=== PATIENT | female | born 1980 | race Caucasian/White ===

== ENCOUNTER 2016-11-15 19:59 | Emergency (ER) | payer OTHER ==
[2016-11-15 23:14] LABS: BASO # 0.1 K/uL (0.0-0.2); BASO % 0.7 % (0.0-2.0); EOS # 0.2 K/uL (0.0-0.7); EOS % 2.2 % (0.0-4.0); HEMATOCRIT 22.1 % (34.0-47.0); LYMPH # 2.1 K/uL (1.0-4.3); LYMPH % 26.6 % (20.0-40.0); MEAN CELL VOLUME 77.3 fL (81.0-99.0); MEAN CORPUSCULAR HEMOGLOBIN 24.1 pg (27.0-31.0); MEAN CORPUSCULAR HGB CONC 31.2 g/dL (33.0-37.0); MEAN PLATELET VOLUME 8.9 fL (7.2-11.7); MONO # 0.3 K/uL (0.0-0.8); RED CELL DISTRIBUTION WIDTH 16.4 % (11.5-14.5); WHITE BLOOD COUNT 7.9 K/uL (4.8-10.8)
[2016-11-15 23:17] LABS: RBC URINE 1 /hpf (0-3); URINE BACTERIA RARE (<OCC); URINE BILIRUBIN NEGATIVE (NEGATIVE); URINE BLOOD NEGATIVE (NEGATIVE); URINE COLOR Straw (YELLOW); URINE GLUCOSE (UA) 1+ mg/dL (Normal); URINE KETONE NEGATIVE (NEGATIVE); URINE LEUKOCYTE ESTERASE NEG Leu/uL (Negative); URINE PROTEIN 2+ mg/dL (NEGATIVE); URINE UROBILINOGEN NORMAL mg/dL (0.2-1.0); WBC URINE 1 /hpf (0-5)
[2016-11-15 23:25] LABS: POTASSIUM 5.1 mmol/L (3.6-5.2)
[2016-11-15 23:28] LABS: ALB/GLOB RATIO 1.3 (1.0-2.1); BILIRUBIN,TOTAL 0.6 mg/dL (0.2-1.3); CALCIUM 9.3 mg/dl (8.6-10.4); TOTAL PROTEIN 8.1 g/dL (6.3-8.3)
[2016-11-15 23:59] LABS: THYROID STIMULATING HORMONE 6.81 mIU/L (0.46-4.68)
--- NOTE | 2016-11-16 00:42 | C.PDOC ---
History Of Present Illness 36 y/o male referred by Dr. Missy Barron, [employer], for abnormal outpatient labs related to infertility. Patient notes to have elevated TSH and elevated creatinine. Denies somatic complaints. Time Seen by Provider: 11/15/16 22:40 Chief Complaint (Nursing): Abnormal Labs History Per: Patient History/Exam Limitations: no limitations Onset/Duration Of Symptoms: Days Current Symptoms Are (Timing): Still Present Severity: Mild Recent travel outside of the [place]: No Additional History Per: Patient Past Medical History Reviewed: Historical Data, Nursing Documentation, Vital Signs Vital Signs: Last Vital Signs Temp 98.3 F 11/16/16 00:56 Pulse 85 11/16/16 00:56 Resp 18 11/16/16 00:56 BP 130/87 11/16/16 00:56 Pulse Ox 97 11/16/16 00:56 Family History: States: Unknown Family Hx - Social History Hx Alcohol Use: Yes Hx Substance Use: No - Immunization History Hx Tetanus Toxoid Vaccination: No Hx Influenza Vaccination: No Hx Pneumococcal Vaccination: No Review Of Systems Except As Marked, All Systems Reviewed And Found Negative. Constitutional: Positive for: Other (abnormal labs). Negative for: Fever Cardiovascular: Negative for: Chest Pain Respiratory: Negative for: Shortness of Breath Gastrointestinal: Negative for: Abdominal Pain Physical Exam - Physical Exam Appears: Non-toxic, No Acute Distress Skin: Warm, Dry, Other (Plethoric face) Head: Atraumatic, Normacephalic Eye(s): bilateral: Normal Inspection Oral Mucosa: Moist Neck: Supple Cardiovascular: Rhythm Regular Respiratory: Normal Breath Sounds, No Rales, No Rhonchi, No Wheezing Gastrointestinal/Abdominal: Soft, No Tenderness Back: Normal Inspection, No CVA Tenderness Neurological/Psych: Oriented x3, Normal Speech, Normal Cognition ED Course And Treatment - Laboratory Results Result Diagrams: 11/15/16 23:11 11/15/16 23:11 Lab Interpretation: Abnormal (worstening bun/creat, rising TSH, + Prolactin level 54, normal K+ concerning for prolactinoma) ECG: Interpreted By Me ECG Rhythm: Sinus Rhythm ECG Interpretation: Normal Rate From EC O2 Sat by Pulse Oximetry: 100 (RA) Pulse Ox Interpretation: Normal Reevaluation Time: 00:40 Reassessment Condition: Unchanged Medical Decision Making Medical Decision Making: Plans: * EKG * IV fluids * UA * Blood work up consider prolactinoma, MRI pituitary suggested pt and extensively explained risks/benefits and they decide to leave hospital AMA and f/u as opt w Medicine Rn Hemodialysis Charge or local Physician Lexii Barron with whom they are familiar. Will f/u with Dr. Jerome Syed [employer] as well Copies of labs given for easy referral AMA form completed. Expect pt to return to hospital for w/u soon considering, as explained, worstening renal function may lead to hyperkalemia and potentially fatal cardiac arrhythmias. Disposition Doctor Will See Patient In The: Office Counseled Patient/Family Regarding: Studies Performed, Diagnosis - Disposition Referrals: Delonte Blanca Jr., MD [Medical Doctor] - Juan Barron MD [Staff Provider] - Francy Barron MD [Staff Provider] - Disposition: HOME/ ROUTINE Disposition Time: 00:42 Condition: GOOD Additional Instructions: Please follow-up with Dr. Jerome Barron as soon as possible Follow up with Medicine Rn Hemodialysis Charge- Dr. Blanca Follow up with Local [place] PMD: Dr. Lexii Barron- also renal specialist Further testing and MRI of Brain/pituitary is indicated immediately Return to ED by ambulance should pt's condition deteriorate clinically Instructions: Acute Kidney Injury (DC), Prolactinomas (GEN) Forms: [employer] (Arabic) - Clinical Impression Clinical Impression: Laboratory test result abnormal, Acute renal insufficiency, Prolactin increased - Scribe Statement The provider has reviewed the documentation as recorded by the Scribe Lincoln sneed All medical record entries made by the Scribe were at my direction and personally dictated by me. I have reviewed the chart and agree that the record accurately reflects my personal performance of the history, physical exam, medical decision making, and the department course for this patient. I have also personally directed, reviewed, and agree with the discharge instructions and disposition.
[2016-11-16 00:56] VITALS: BP 130/87; PULSE 85; RESP 18; TEMP 98.3
[2016-11-16 02:37] VITALS: O2SAT 100
--- NOTE | 2016-11-17 17:59 | CARD ---
APPROVED REPORT EKG Measurement Heart [id number] HI [id number] [id number] <Conclusion> Normal sinus rhythm Cannot rule out Inferior infarct, age undetermined Abnormal ECG
== END 2016-11-16 00:58 | disposition home or self-care (01) ==
LOC: C.ER 19:59
DX: N28.9 Disorder of kidney and ureter, unspecified (principal)

== ENCOUNTER 2016-11-24 12:19 | Inpatient (IN) | payer OTHER ==
[2016-11-24 13:28] LABS: RBC URINE 1 /hpf (0-3); URINE BACTERIA RARE (<OCC); URINE BILIRUBIN NEGATIVE (NEGATIVE); URINE BLOOD NEGATIVE (NEGATIVE); URINE COLOR Straw (YELLOW); URINE GLUCOSE (UA) 2+ mg/dL (Normal); URINE KETONE NEGATIVE (NEGATIVE); URINE LEUKOCYTE ESTERASE NEG Leu/uL (Negative); URINE PROTEIN 2+ mg/dL (NEGATIVE); URINE UROBILINOGEN NORMAL mg/dL (0.2-1.0); WBC URINE 3 /hpf (0-5)
--- NOTE | 2016-11-24 14:27 | C.PDOC ---
History Of Present Illness 36 y/o female presents to the ED for evaluation of acute renal failure and anemia. Patient denies chest pain, shortness of breath, and dizziness. denies active bleeding from any site. Time Seen by Provider: 11/24/16 13:27 Chief Complaint (Nursing): Abnormal Labs History Per: Patient History/Exam Limitations: no limitations Current Symptoms Are (Timing): Still Present Additional History Per: Patient Past Medical History Reviewed: Historical Data, Nursing Documentation, Vital Signs Vital Signs: Last Vital Signs Temp 98 F 11/24/16 16:36 Pulse 71 11/24/16 16:36 Resp 20 11/24/16 16:36 BP 129/84 11/24/16 16:36 Pulse Ox 96 11/24/16 18:50 - Medical History PMH: No Chronic Diseases Surgical History: No Surg Hx Family History: States: Unknown Family Hx - Social History Hx Alcohol Use: Yes Hx Substance Use: No - Immunization History Hx Tetanus Toxoid Vaccination: No Hx Influenza Vaccination: No Hx Pneumococcal Vaccination: No Review Of Systems Constitutional: Negative for: Fever, Chills Cardiovascular: Negative for: Chest Pain Respiratory: Negative for: Cough, Shortness of Breath Gastrointestinal: Negative for: Nausea, Vomiting, Abdominal Pain Genitourinary: Negative for: Dysuria, Hematuria Neurological: Negative for: Weakness, Numbness, Dizziness Physical Exam - Physical Exam Additional Physical Exam Comments: Constitutional: No acute distress. Head: Normocephalic. Atraumatic. Eyes: PERRL. EOMI ENT: Moist mucous membranes. Neck: Supple. Cardiovascular: Regular rate and rhythm. No murmur. Chest: No tenderness. Respiratory: Clear to auscultation bilaterally. No wheezing, rhonchi, or rales. GI: Soft. Nontender. Nondistended. Normoactive bowel sounds. Back: No CVA tenderness. Musculoskeletal: No swelling of extremities. No calf tenderness. Skin: No rash. Neurologic: Alert, no gross focal deficit. ED Course And Treatment - Laboratory Results Result Diagrams: 11/24/16 14:43 11/24/16 14:43 O2 Sat by Pulse Oximetry: 96 (on RA) Pulse Ox Interpretation: Normal Medical Decision Making Medical Decision Making: labs and EKG ordered and reviewed. Discussed with Dr Barron pt to be admitted to his service and requests 2 units prbc transfusion. Disposition Discussed With : Juan Barron Doctor Will See Patient In The: Hospital - Disposition Disposition: HOSPITALIZED Disposition Time: 15:13 Condition: SERIOUS - Clinical Impression Clinical Impression: Acute renal failure (ARF), Anemia - PA / BAT BOY/GIRL / Resident Statement MD/DO has reviewed & agrees with the documentation as recorded. - Scribe Statement The provider has reviewed the documentation as recorded by the Scribe (Radha Barron) All medical record entries made by the Scribe were at my direction and personally dictated by me. I have reviewed the chart and agree that the record accurately reflects my personal performance of the history, physical exam, medical decision making, and the department course for this patient. I have also personally directed, reviewed, and agree with the discharge instructions and disposition. Decision To Admit - Pt Status Changed To: Hospital Disposition Of: Observation - . Bed Request Type: Regular Admitting Physician: Juan Barron Patient Diagnosis: Acute renal failure (ARF), Anemia
[2016-11-24 14:50] LABS: BASO % 0.5 % (0.0-2.0); EOS # 0.1 K/uL (0.0-0.7); EOS % 2.5 % (0.0-4.0); HEMATOCRIT 22.1 % (34.0-47.0); LYMPH # 1.3 K/uL (1.0-4.3); LYMPH % 22.6 % (20.0-40.0); MEAN CELL VOLUME 77.6 fL (81.0-99.0); MEAN CORPUSCULAR HEMOGLOBIN 24.3 pg (27.0-31.0); MEAN CORPUSCULAR HGB CONC 31.3 g/dL (33.0-37.0); MEAN PLATELET VOLUME 9.4 fL (7.2-11.7); MONO # 0.3 K/uL (0.0-0.8); MONO % 4.9 % (0.0-10.0); NRBC % 0.1 % (0.0-2.0); RED CELL DISTRIBUTION WIDTH 16.3 % (11.5-14.5); WHITE BLOOD COUNT 5.7 K/uL (4.8-10.8)
[2016-11-24 14:57] LABS: ALB/GLOB RATIO 1.2 (1.0-2.1); BILIRUBIN,TOTAL 0.3 mg/dL (0.2-1.3); CALCIUM 8.9 mg/dl (8.6-10.4); POTASSIUM 5.5 mmol/L (3.6-5.2); TOTAL PROTEIN 7.7 g/dL (6.3-8.3)
[2016-11-24] MEDS ORDERED: Sod Polystyrene Sulf 15 gm/60 ml Oral Susp PO ONE (16:35)
--- NOTE | 2016-11-24 17:36 | US ---
PROCEDURE: Ultrasound of the Kidneys HISTORY: acute renal failure COMPARISON: None available. TECHNIQUE: Sonogram of the kidneys. FINDINGS: RIGHT KIDNEY: Measures: 3.7 x 4.2 x 8.7 cm. Atrophic echogenic right kidney No stone, solid mass lesion or hydronephrosis visualized. LEFT KIDNEY: Measures: 3.6 x 4 x 9.3 cm. Atrophic echogenic left kidney No stone, solid mass lesion or hydronephrosis visualized. OTHER FINDINGS: None. IMPRESSION: No acute findings related to/accounting for the clinical presentation. Atrophic echogenic kidneys bilaterally consistent with medical renal disease.
--- NOTE | 2016-11-24 20:08 | CP.PCM.HP ---
Past Patient History - Past Social History Smoking Status: Never Smoked - MUSCULOSKELETAL/RHEUMATOLOGICAL Hx Falls: No - PSYCHIATRIC Hx Substance Use: No - SURGICAL HISTORY Hx Surgeries: No - ANESTHESIA Hx Anesthesia: No Meds Allergies/Adverse Reactions: Allergies Allergy/AdvReac Type Severity Reaction Status Date / Time No Known Allergies Allergy Verified 11/24/16 12:46 Physical Exam - Constitutional Appears: Well - Head Exam Head Exam: ATRAUMATIC, NORMAL INSPECTION, NORMOCEPHALIC - Eye Exam Eye Exam: EOMI, Normal appearance, PERRL Pupil Exam: NORMAL ACCOMODATION, PERRL - ENT Exam ENT Exam: Mucous Membranes Moist, Normal Exam - Neck Exam Neck exam: Positive for: Normal Inspection - Respiratory Exam Respiratory Exam: Decreased Breath Sounds - Cardiovascular Exam Cardiovascular Exam: REGULAR RHYTHM, +S1, +S2 - GI/Abdominal Exam GI & Abdominal Exam: Diminished Bowel Sounds, Soft - Rectal Exam Rectal Exam: Deferred Results - Vital Signs Recent Vital Signs: Last Vital Signs Temp 98.2 F 11/24/16 19:52 Pulse 87 11/24/16 19:52 Resp 18 11/24/16 19:52 BP 122/83 11/24/16 19:52 Pulse Ox 96 11/24/16 18:52 - Labs Result Diagrams: 11/24/16 14:43 11/24/16 14:43
[2016-11-25 08:17] LABS: INR 1.1
[2016-11-25 08:47] VITALS: RESP 20
[2016-11-25 09:27] LABS: ALB/GLOB RATIO 1.2 (1.0-2.1); BILIRUBIN,TOTAL 0.5 mg/dL (0.2-1.3); POTASSIUM 4.4 mmol/L (3.6-5.2); TOTAL PROTEIN 6.9 g/dL (6.3-8.3)
[2016-11-25] MEDS: Sodium Chloride 0.9% 1,000 ML IV SCH ×3 (10:28→22:26)
[2016-11-25 11:52] LABS: BASO % 0.5 % (0.0-2.0); EOS # 0.2 K/uL (0.0-0.7); EOS % 2.6 % (0.0-4.0); HEMATOCRIT 26.1 % (34.0-47.0); LYMPH # 1.6 K/uL (1.0-4.3); LYMPH % 26.5 % (20.0-40.0); MEAN CELL VOLUME 78.8 fL (81.0-99.0); MEAN CORPUSCULAR HEMOGLOBIN 26.1 pg (27.0-31.0); MEAN CORPUSCULAR HGB CONC 33.2 g/dL (33.0-37.0); MONO # 0.2 K/uL (0.0-0.8); MONO % 4.2 % (0.0-10.0); NRBC % 0.1 % (0.0-2.0); RED CELL DISTRIBUTION WIDTH 15.9 % (11.5-14.5); WHITE BLOOD COUNT 5.9 K/uL (4.8-10.8)
--- NOTE | 2016-11-25 17:05 | CP.PCM.CON ---
History of Present Illness - History of Present Illness History of Present Illness: 36 y/o IF admitted for possible renal bx for dx of elevated creatinine. 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 Recent creatinines all elevated at 7mg%. Has had severe anemia, metabolic acidosis. Renal US in showed atrophic echogenic kidneys bilaterally. No h/o CKD, no recent medical evaluation. No FH of CKD. No surgical hx No meds. No NSAID use no illicit drug use, no smoking or ETOH abuse. Review of Systems - Constitutional Constitutional: Lethargy, Weakness - EENT Ears: absent: As Per HPI, Decreased Hearing, Ear Discharge, Ear Pain, Tinnitus, Abnormal Hearing, Disequilibrium, Dizziness, Other Nose/Mouth/Throat: absent: As Per HPI, Epistaxis, Nasal Congestion, Nasal Discharge, Nasal Obstruction, Nasal Trauma, Nose Pain, Post Nasal Drip, Sinus Pain, Sinus Pressure, Bleeding Gums, Change in Voice, Dental Pain, Dry Mouth, Dysphagia, Halitosis, Hoarsness, Lip Swelling, Mouth Lesions, Mouth Pain, Odynophagia, Sore Throat, Throat Swelling, Tongue Swelling, Facial Pain, Neck Pain, Neck Mass, Other - Cardiovascular Cardiovascular: absent: As Per HPI, Acrocyanosis, Chest Pain, Chest Pain at Rest , Chest Pain with Activity, Claudication, Diaphoresis, Dyspnea, Dyspnea on Exertion, Edema, Irregular Heart Rhythm, Pain Radiating to Arm/Neck/Jaw, Leg Edema, Leg Ulcers, Lightheadedness, Orthopnea, Palpitations, Paroxysmal Nocturnal Dyspnea, Pedal Edema, Radiating Pain, Rapid Heart Rate, Slow Heart Rate, Syncope, Other - Respiratory Respiratory: Dyspnea on Exertion - Gastrointestinal Gastrointestinal: absent: As Per HPI, Abdominal Pain, Belching, Bloating, Change in Bowel Habits, Change in Stool Character, Coffee Ground Emesis, Constipation, Cramping, Diarrhea, Dyspepsia, Dysphagia, Early Satiety, Excessive Flatus, Fecal Incontinence, Heartburn, Hematemesis, Hematochezia, Loose Stools, Melena, Nausea, Odynophagia, Temesmus, Vomiting, Other - Genitourinary Genitourinary: absent: As Per HPI, Change in Urinary Stream, Difficulty Urinating, Dysuria, Flank Pain, Hematuria, Pyuria, Nocturia, Urinary Incontinence, Urinary Frequency, Urinary Hesitance, Urinary Urgency, Voiding Freq/Small Amts, Freq UTI, Hx Renal/Bladder Calculi, Hx /Renal Surgery, Bladder Distension, Other - Reproductive: Female Reproductive:Female: As Per HPI - Musculoskeletal Musculoskeletal: Muscle Weakness - Integumentary Integumentary: absent: As Per HPI, Acne, Alopecia, Bleeding Lesions, Change in Hair, Change in Nails, Change in Pigmentation, Changing Lesions, Dry Skin, Erythema, Furuncle, Hirsutism, Lesions, New Lesions, Non-Healing Lesions, Photosensitivity, Pruritus, Rash, Skin Pain, Skin Ulcer, Sores, Striae, Swelling , Unusual Bruising, Wounds, Jaundice, Other - Neurological Neurological: Weakness Past Patient History - Past Medical History & Family History Past Medical History?: No Past Family History: Reviewed and not pertinent - Past Social History Smoking Status: Never Smoked Chewing Tobacco Use: No Cigar Use: No Alcohol: None Drugs: Denies Home Situation {Lives}: With Family - MUSCULOSKELETAL/RHEUMATOLOGICAL Hx Falls: No - PSYCHIATRIC Hx Substance Use: No - SURGICAL HISTORY Hx Surgeries: No - ANESTHESIA Hx Anesthesia: No Meds Allergies/Adverse Reactions: Allergies Allergy/AdvReac Type Severity Reaction Status Date / Time No Known Allergies Allergy Verified 11/24/16 12:46 - Medications Medications: Current Medications Sodium Chloride (Sodium Chloride 0.9%) 1,000 mls @ 80 mls/hr IV .[id number] Last Admin: 11/25/16 10:28 Dose: 80 mls/hr Pneumococcal Polyvalent Vaccine (Pneumovax 23 Vaccine) 0.5 ml IM .ONCE ONE Stop: 11/26/16 10:01 Physical Exam - Constitutional Appears: Non-toxic, No Acute Distress, Chronically Ill - Head Exam Head Exam: ATRAUMATIC, NORMAL INSPECTION - Eye Exam Eye Exam: EOMI, Normal appearance Pupil Exam: PERRL - Neck Exam Neck exam: Positive for: Normal Inspection. Negative for: Tenderness - Respiratory Exam Respiratory Exam: Clear to Auscultation Bilateral, NORMAL BREATHING PATTERN - Cardiovascular Exam Cardiovascular Exam: REGULAR RHYTHM, +S1 - GI/Abdominal Exam GI & Abdominal Exam: Soft. absent: Tenderness - Extremities Exam Extremities exam: Positive for: normal inspection. Negative for: tenderness - Neurological Exam Neurological exam: Alert, Oriented x3 - Skin Skin Exam: Dry, Warm Results - Vital Signs Recent Vital Signs: Last Vital Signs Temp 97.5 F L 11/25/16 08:00 Pulse 75 09/15/17 08:00 Resp 20 11/25/16 08:00 BP 123/85 11/25/16 08:00 Pulse Ox 97 11/25/16 08:00 - Labs Result Diagrams: 11/25/16 11:42 11/25/16 09:02 Labs: Laboratory Results - last 24 hr 11/25/16 11/25/16 11/25/16 08:02 09:02 11:42 WBC 5.9 RBC 3.31 L Hgb 8.7 L Hct 26.1 L MCV 78.8 L MCH 26.1 L MCHC 33.2 RDW 15.9 H Plt Count 139 MPV 9.0 Neut % (Auto) 66.2 Lymph % (Auto) 26.5 Taylor % (Auto) 4.2 Eos % (Auto) 2.6 Baso % (Auto) 0.5 Neut # 3.9 Lymph # 1.6 Taylor # 0.2 Eos # 0.2 Baso # 0.0 PT 12.2 INR 1.1 APTT 29 Sodium 143 Potassium 4.4 Chloride 110 H Carbon Dioxide 17 L Anion Gap 20 BUN 48 H Creatinine 7.0 H Est GFR ( Amer) 8 Est GFR (Non-Af Amer) 7 Random Glucose 84 Calcium 9.0 Total Bilirubin 0.5 AST 7 L ALT 17 Alkaline Phosphatase 167 H Total Protein 6.9 Albumin 3.7 Globulin 3.1 Albumin/Globulin Ratio 1.2 Assessment & Plan (1) CKD stage 5 secondary to hypertension Status: Acute (2) CKD (chronic kidney disease) stage 5, GFR less than 15 ml/min Status: Acute (3) Chronic glomerulonephritis Status: Acute (4) Chronic disease anemia Status: Acute (5) Metabolic acidosis Status: Acute - Assessment and Plan (Free Text) Plan: CT abdomen check immunologics add bicarb would start dialysis - patient considering
--- NOTE | 2016-11-25 18:23 | CP.PCM.PN ---
Subjective - Date & Time of Evaluation Date of Evaluation: 11/25/16 Time of Evaluation: 08:00 - Subjective Subjective: clinically same Objective - Vital Signs/Intake and Output Vital Signs (last 24 hours): Temp Pulse Resp BP Pulse Ox 97.9 F 75 20 124/85 99 11/25/16 16:00 11/25/16 16:00 11/25/16 16:00 11/25/16 16:00 11/25/16 16:00 Intake and Output: 11/25/16 11/25/16 06:59 18:59 Intake Total 1274 1400 Balance 1274 1400 - Medications Medications: Current Medications Sodium Chloride (Sodium Chloride 0.9%) 1,000 mls @ 80 mls/hr IV .[id number] [facility] Last Admin: 11/25/16 10:28 Dose: 80 mls/hr Pneumococcal Polyvalent Vaccine (Pneumovax 23 Vaccine) 0.5 ml IM .ONCE ONE Stop: 11/26/16 10:01 Sodium Bicarbonate (Sodium Bicarbonate Tab) 650 mg PO BID [facility] - Labs Labs: 11/25/16 11:42 11/25/16 09:02 PT 12.2 SECONDS (9.7-12.2) 11/25/16 08:02 INR 1.1 11/25/16 08:02 APTT 29 SECONDS (21-34) 11/25/16 08:02 - Constitutional Appears: Well - Head Exam Head Exam: ATRAUMATIC, NORMAL INSPECTION, NORMOCEPHALIC - Eye Exam Eye Exam: EOMI, Normal appearance, PERRL Pupil Exam: NORMAL ACCOMODATION, PERRL - ENT Exam ENT Exam: Mucous Membranes Moist, Normal Exam - Neck Exam Neck Exam: Full ROM, Normal Inspection. absent: Lymphadenopathy - Respiratory Exam Respiratory Exam: Decreased Breath Sounds - Cardiovascular Exam Cardiovascular Exam: REGULAR RHYTHM, +S1, +S2 - GI/Abdominal Exam GI & Abdominal Exam: Soft, Diminished Bowel Sounds - Rectal Exam Rectal Exam: Deferred
--- NOTE | 2016-11-25 22:23 | CT ---
EXAM: CT Abdomen Without Intravenous Contrast CLINICAL HISTORY: 36 years old, female; Condition or disease; Kidney or ureter condition; Other: Evaluate bilateral kidney size; Patient HX: Anemia TECHNIQUE: Axial computed tomography images of the abdomen without intravenous contrast. All CT scans at this facility use one or more dose reduction techniques, viz.: automated exposure control; ma/kV adjustment per patient size (including targeted exams where dose is matched to indication; i.e. head); or iterative reconstruction technique. Coronal and sagittal reformatted images were created and reviewed. COMPARISON: No relevant prior studies available. FINDINGS: Lower thorax: The bilateral lung bases are clear. ABDOMEN: Liver: No acute findings Gallbladder and bile ducts: No acute finding. No calcified stones. No intra-extrahepatic biliary ductal dilation. Pancreas: Limited evaluation secondary to the lack of intravenous contrast. Spleen: No acute findings. Adrenals: No acute findings. Kidneys and ureters: The bilateral kidneys demonstrate marked atrophy with cortical thinning - findings consistent with medical renal disease. No obstructing stones. No hydronephrosis. ABDOMEN and PELVIS: Stomach and bowel: No acute findings. Peritoneum: No acute findings. Lymph nodes: Limited evaluation without intravenous contrast. Vasculature: No aortic aneurysm. Bones: No acute fracture. IMPRESSION: Findings consistent with medical renal disease, as detailed above.
[2016-11-26 07:20] LABS: ALB/GLOB RATIO 1.1 (1.0-2.1); ALKALINE PHOSPHATASE 153 U/L (38-126); ALT/SGPT 21 U/L (9-52); AST/SGOT 8 U/L (14-36); BILIRUBIN,TOTAL 0.4 mg/dL (0.2-1.3); BLOOD UREA NITROGEN 44 mg/dL (7-17); CALCIUM 8.8 mg/dl (8.6-10.4); CARBON DIOXIDE 16 mmol/L (22-30); CHLORIDE 112 mmol/L (98-107); GFR AFRICAN-AMERICAN 8; GLUCOSE,RANDOM 83 mg/dL (65-105); POTASSIUM 4.5 mmol/L (3.6-5.2); SODIUM 143 mmol/L (132-148); TOTAL PROTEIN 6.4 g/dL (6.3-8.3)
[2016-11-26] MEDS ORDERED: Pneumococcal 23-Valent Vaccine IM ONE (10:00)
[2016-11-26] MEDS: Sodium Chloride 0.9% 1,000 ML IV SCH ×2 (10:41→14:08)
--- NOTE | 2016-11-26 11:36 | CP.PCM.PN ---
Subjective - Date & Time of Evaluation Date of Evaluation: 11/26/16 Time of Evaluation: 11:32 - Subjective Subjective: feels ok no cp or SOB s/p blood transfusion CT abdomen results noted and discussed with PT ROS- as per HPI, rest negative 10 point ROS Objective - Vital Signs/Intake and Output Vital Signs (last 24 hours): Temp Pulse Resp BP Pulse Ox 97.6 F 62 20 116/75 99 11/26/16 07:49 11/26/16 07:49 11/26/16 07:49 11/26/16 07:49 11/26/16 07:49 Intake and Output: 11/26/16 11/26/16 06:59 18:59 Intake Total 640 Balance 640 - Medications Medications: Current Medications Sodium Chloride (Sodium Chloride 0.9%) 1,000 mls @ 80 mls/hr IV .[id number] [facility] Last Admin: 11/26/16 10:41 Dose: Not Given Sodium Bicarbonate (Sodium Bicarbonate Tab) 650 mg PO BID [facility] Last Admin: 11/26/16 10:40 Dose: 650 mg - Labs Labs: 11/25/16 11:42 11/26/16 06:51 PT 12.2 SECONDS (9.7-12.2) 11/25/16 08:02 INR 1.1 11/25/16 08:02 APTT 29 SECONDS (21-34) 11/25/16 08:02 - Constitutional Appears: Well, Non-toxic - Head Exam Head Exam: ATRAUMATIC, NORMOCEPHALIC - Eye Exam Eye Exam: EOMI, PERRL Pupil Exam: NORMAL ACCOMODATION - ENT Exam ENT Exam: Mucous Membranes Moist - Respiratory Exam Respiratory Exam: Clear to Ausculation Bilateral. absent: Rhonchi, Wheezes - Cardiovascular Exam Cardiovascular Exam: REGULAR RHYTHM, +S1, +S2 - GI/Abdominal Exam GI & Abdominal Exam: Soft. absent: Tenderness - Extremities Exam Extremities Exam: Full ROM. absent: Pedal Edema - Neurological Exam Neurological Exam: Alert, Awake, Normal Gait, Oriented x3 - Psychiatric Exam Psychiatric exam: Normal Affect, Normal Mood - Skin Skin Exam: Normal Color, Warm Assessment and Plan (1) Anemia Status: Acute (2) CKD (chronic kidney disease) stage 5, GFR less than 15 ml/min Status: Acute (3) Chronic glomerulonephritis Status: Acute (4) Metabolic acidosis Status: Acute - Assessment and Plan (Free Text) Plan: small kidney size and cortical thinning on CT scan needs initiation of dialysis discussed with pt in length regarding PD and hemo explained the procedures awaiting for pt to decide on modality spent > 45 min with the pt and her answering questions
--- NOTE | 2016-11-26 15:24 | CP.PCM.PN ---
Subjective - Date & Time of Evaluation Date of Evaluation: 11/26/16 Time of Evaluation: 07:40 - Subjective Subjective: clinically same Objective - Vital Signs/Intake and Output Vital Signs (last 24 hours): Temp Pulse Resp BP Pulse Ox 97.6 F 62 20 116/75 99 11/26/16 07:49 11/26/16 07:49 11/26/16 07:49 11/26/16 07:49 11/26/16 07:49 Intake and Output: 11/26/16 11/26/16 06:59 18:59 Intake Total 640 Balance 640 - Medications Medications: Current Medications Sodium Chloride (Sodium Chloride 0.9%) 1,000 mls @ 80 mls/hr IV .[id number] [facility] Last Admin: 11/26/16 14:08 Dose: 80 mls/hr Sodium Bicarbonate (Sodium Bicarbonate Tab) 650 mg PO BID [facility] Last Admin: 11/26/16 10:40 Dose: 650 mg - Labs Labs: 11/25/16 11:42 11/26/16 06:51 PT 12.2 SECONDS (9.7-12.2) 11/25/16 08:02 INR 1.1 11/25/16 08:02 APTT 29 SECONDS (21-34) 11/25/16 08:02 - Constitutional Appears: Well - Head Exam Head Exam: ATRAUMATIC, NORMAL INSPECTION, NORMOCEPHALIC - Eye Exam Eye Exam: EOMI, Normal appearance, PERRL Pupil Exam: NORMAL ACCOMODATION, PERRL - ENT Exam ENT Exam: Mucous Membranes Moist, Normal Exam - Neck Exam Neck Exam: Full ROM, Normal Inspection. absent: Lymphadenopathy - Respiratory Exam Respiratory Exam: Decreased Breath Sounds - Cardiovascular Exam Cardiovascular Exam: REGULAR RHYTHM, +S1, +S2 - GI/Abdominal Exam GI & Abdominal Exam: Soft, Diminished Bowel Sounds - Rectal Exam Rectal Exam: Deferred
[2016-11-26 16:06] VITALS: O2SAT 100
--- NOTE | 2016-11-26 17:16 | CP.PCM.PN ---
Subjective - Date & Time of Evaluation Date of Evaluation: 11/26/16 Time of Evaluation: 17:16 - Subjective Subjective: Alert, awake, no sob or pains. Denies nausea or vomiting. Objective - Vital Signs/Intake and Output Vital Signs (last 24 hours): Temp Pulse Resp BP Pulse Ox 97.9 F 77 20 129/86 100 11/26/16 15:04 11/26/16 15:04 11/26/16 15:04 11/26/16 15:04 11/26/16 15:04 Intake and Output: 11/26/16 11/26/16 06:59 18:59 Intake Total 640 1000 Balance 640 1000 - Medications Medications: Current Medications Sodium Chloride (Sodium Chloride 0.9%) 1,000 mls @ 80 mls/hr IV .[id number] [facility] Last Admin: 11/26/16 14:08 Dose: 80 mls/hr Sodium Bicarbonate (Sodium Bicarbonate Tab) 650 mg PO BID [facility] Last Admin: 11/26/16 10:40 Dose: 650 mg - Labs Labs: 11/25/16 11:42 11/26/16 06:51 PT 12.2 SECONDS (9.7-12.2) 11/25/16 08:02 INR 1.1 11/25/16 08:02 APTT 29 SECONDS (21-34) 11/25/16 08:02 Assessment and Plan - Assessment and Plan (Free Text) Assessment: Patient is seen and examined . Denies any acute complaints. Creatinine is 7 today, she is advised for hemodialysis. Will be discharged home today after 1 unit of PRBC as per DR Sridevi Barron. Advised to f/u with PMD in 1 week.
[2016-11-26 22:27] VITALS: BP 131/78; PULSE 70; TEMP 98.6
--- NOTE | 2016-11-27 10:26 | CARD ---
APPROVED REPORT EKG Measurement Heart [id number] [place] 192P0 [id number] <Conclusion> Normal sinus rhythm Normal ECG
== END 2016-11-26 23:15 | disposition home or self-care (01) | DRG 683 ==
LOC: C.ER 12:19 → C.9E 15:33 → OBSVTOIN 15:56 → C.3T 16:31
PROVIDERS: ADMIT Internal Medicine Nephrology; ATTEND Internal Medicine Nephrology
DX: N17.9 Acute kidney failure, unspecified (principal); E87.2 Acidosis; D64.9 Anemia, unspecified; N03.9 Chronic nephritic syndrome with unspecified morphologic changes; N18.5 Chronic kidney disease, stage 5